=== PATIENT | male | born 1995 | race African-American/Black ===

== ENCOUNTER 2023-07-02 19:06 | Emergency (ER) | payer SELFPAY ==
[2023-07-02 19:35] VITALS: BP 139/87; PULSE 83; RESP 16; TEMP 98.5; BMI 25.5
== END 2023-07-02 20:25 | disposition home or self-care (01) ==
LOC: FER 19:06
DX: H10.33 Unspecified acute conjunctivitis, bilateral (principal); J02.9 Acute pharyngitis, unspecified; R05.9 Cough, unspecified
CPT/HCPCS: 87651; 99283-25